=== PATIENT | male | born 1970 | race Two or more races ===

== ENCOUNTER → 2019-04-19 | Outpatient (CLI) | payer BC ==
[2019-04-19 08:21] LABS: Hematocrit 44.4 % (41.0-53.0); Hemoglobin 15.3 g/dL (13.5-17.5); Mean Corpuscular Hemoglobin 31.8 pg (28.0-32.0); Mean Corpuscular Hgb Conc. 34.5 g/dL (32.0-36.0); Mean Corpuscular Volume 92.2 fL (80.0-100.0); Platelet Count (auto) 193 10^3/uL (140-450); Red Blood Cells 4.81 10^6/uL (4.5-5.90); Red Cell Distribution Width 13.2 % (11.8-14.3); White Blood Cell 6.2 10^3/uL (4.4-10.8)
[2019-04-19 08:31] LABS: Basophils % (manual) 0 (0.0-2.0); Blast Cells 0; Metamyelocytes % 0; Myelocytes % 0; Promyelocytes % 0; Reactive Lymphocytes 0
[2019-04-19 09:04] LABS: Band Neutrophils % (manual) 1; Eosinophils % (manual) 10 (0-7); Lymphocytes % (manual) 31 (10.0-50.0); Monocytes % (manual) 15 (0-12)
[2019-04-19 09:07] LABS: Potassium 3.8 mmol/L (3.5-5.1)
[2019-04-19 09:20] LABS: Albumin 4.3 g/dL (3.4-5.0); BUN/Creatinine Ratio 12.7; Bilirubin, Total 0.6 mg/dL (0.2-1.0); Calcium 9.1 mg/dL (8.5-10.1); Total Protein 7.9 g/dL (6.4-8.2)
== END | disposition home or self-care (01) ==
LOC: LAB 07:07
PROVIDERS: ATTEND Nurse Practitioner
DX: E78.5 Hyperlipidemia, unspecified (principal)
CPT/HCPCS: 36415; 80053; 80061; 85007; 85027

== ENCOUNTER → 2021-07-30 | Outpatient (CLI) | payer BC ==
[2021-07-30 07:43] LABS: Urine Bacteria NONE SEEN /hpf (None Seen); Urine Blood Negative /uL (Negative); Urine Mucus FEW (None Seen); Urine Specific Gravity 1.015 (1.001-1.035); Urine WBC 1 /hpf (0 - 3)
[2021-07-30 07:52] LABS: Basophils # (auto) 0 10 ^3/uL (0-0.2); Basophils % (auto) 0.3 % (0.0-2.0); Eosinophils # (auto) 0.1 10 ^3/uL (0-0.8); Eosinophils % (auto) 1.7 % (0.0-7.0); Hematocrit 41.7 % (41.0-53.0); Hemoglobin 14.1 g/dL (13.5-17.5); Lymphocytes # (auto) 2.7 10 ^3/uL (0.4-5.4); Lymphocytes % (auto) 43.4 % (10.0-50.0); Mean Corpuscular Hemoglobin 30.4 pg (28.0-32.0); Mean Corpuscular Hgb Conc. 33.9 g/dL (32.0-36.0); Mean Corpuscular Volume 89.8 fL (80.0-100.0); Monocytes # (auto) 0.5 10 ^3/uL (0-1.3); Monocytes % (auto) 7.8 % (0.0-12.0); Neutrophils # (auto) 2.9 10 ^3/uL (1.6-8.6); Neutrophils % (auto) 46.8 % (37.0-80.0); Nucleated Red Blood Cells % 0.1 %; Red Blood Cells 4.64 10^6/uL (4.5-5.90); Red Cell Distribution Width 12.9 % (11.8-14.3); White Blood Cell 6.2 10^3/uL (4.4-10.8)
[2021-07-30 08:23] LABS: Potassium 3.8 mmol/L (3.5-5.1)
[2021-07-30 08:52] LABS: Albumin 3.9 g/dL (3.4-5.0); BUN/Creatinine Ratio 13.6; Bilirubin, Total 0.4 mg/dL (0.2-1.0); Calcium 9.2 mg/dL (8.5-10.1); Total Protein 7.3 g/dL (6.4-8.2)
== END | disposition home or self-care (01) ==
LOC: LAB 06:54
PROVIDERS: ATTEND Nurse Practitioner
DX: E78.5 Hyperlipidemia, unspecified (principal); I10 Essential (primary) hypertension
CPT/HCPCS: 36415; 80053; 80061; 81001; 83036; 84403; 84443; 85025

== ENCOUNTER → 2022-08-31 | Outpatient (CLI) | payer BC ==
[2022-08-31 10:15] LABS: Calcium 9.1 mg/dL (8.5-10.1); Potassium 4.3 mmol/L (3.5-5.1)
[2022-08-31 10:23] LABS: Albumin 4.4 g/dL (3.4-5.0); BUN/Creatinine Ratio 14.4; Bilirubin, Total 0.4 mg/dL (0.2-1.0); Total Protein 7.6 g/dL (6.4-8.2)
== END | disposition home or self-care (01) ==
LOC: LAB 08:57
PROVIDERS: ATTEND Nurse Practitioner
DX: E78.5 Hyperlipidemia, unspecified (principal); R73.9 Hyperglycemia, unspecified
CPT/HCPCS: 36415; 80053; 80061; 83036

== ENCOUNTER → 2023-03-02 | Outpatient (CLI) | payer BC ==
[2023-03-02 07:01] LABS: Urine Bacteria NONE SEEN /hpf (None Seen); Urine Blood Negative /uL (Negative); Urine Clarity Clear (Clear); Urine Color Yellow (Yellow); Urine Mucus FEW (None Seen); Urine Protein, UAD Negative (Negative); Urine Urobilinogen Normal (Negative); Urine WBC <1 /hpf (0 - 3)
[2023-03-02 07:30] LABS: Alanine Aminotransferase 53 U/L (7-40); Albumin 4.7 g/dL (3.2-4.8); Alkaline Phosphatase 48 U/L (46-116); Anion Gap 6.9 (5-15); Aspartate Aminotransferase 24 U/L (13-40); BUN/Creatinine Ratio 11.3 (10.0-20.0); Bilirubin, Total 0.5 mg/dL (0.2-1.0); Blood Urea Nitrogen 12 mg/dL (9-23); Calcium 9.2 mg/dL (8.7-10.4); Carbon Dioxide 23.1 mmol/L (20-30); Chloride 109 mmol/L (98-107); Cholesterol 173 mg/dL (< 200); Glucose 113 mg/dL (74-106); LDL Cholesterol 128 mg/dL (< 100); Potassium 3.9 mmol/L (3.5-5.1); Sodium 139 mmol/L (136-145); Triglycerides 233 mg/dL (< 150)
[2023-03-02 07:31] LABS: Basophils # (auto) 0.1 10 ^3/uL (0-0.2); Basophils % (auto) 0.9 % (0.0-2.0); Eosinophils # (auto) 0.6 10 ^3/uL (0-0.8); Eosinophils % (auto) 9.7 % (0.0-7.0); Hematocrit 40.6 % (41.0-53.0); Hemoglobin 13.6 g/dL (13.5-17.5); Lymphocytes # (auto) 2.4 10 ^3/uL (0.4-5.4); Lymphocytes % (auto) 38.3 % (10.0-50.0); Mean Corpuscular Hemoglobin 31.2 pg (28.0-32.0); Mean Corpuscular Hgb Conc. 33.6 g/dL (32.0-36.0); Mean Corpuscular Volume 92.9 fL (80.0-100.0); Monocytes # (auto) 0.7 10 ^3/uL (0-1.3); Monocytes % (auto) 11.4 % (0.0-12.0); Neutrophils # (auto) 2.5 10 ^3/uL (1.6-8.6); Neutrophils % (auto) 39.7 % (37.0-80.0); Nucleated Red Blood Cells % 0.2 %; Red Blood Cells 4.37 10^6/uL (4.5-5.90); Total Protein 7.1 g/dL (5.7-8.2); White Blood Cell 6.3 10^3/uL (4.4-10.8)
[2023-03-02 10:16] LABS: HDL Cholesterol 33 mg/dL (40-59)
== END | disposition home or self-care (01) ==
LOC: LAB 06:35
PROVIDERS: ATTEND Nurse Practitioner
DX: I10 Essential (primary) hypertension (principal); E78.5 Hyperlipidemia, unspecified; R73.9 Hyperglycemia, unspecified
CPT/HCPCS: 36415; 80053; 80061; 81001; 83036; 84443; 85025

== ENCOUNTER → 2023-07-28 | Outpatient (CLI) | payer BC | END | disposition home or self-care (01) | LOC: LAB 06:34 | PROVIDERS: ATTEND Nurse Practitioner | DX: M10.9 Gout, unspecified (principal) | CPT/HCPCS: 36415; 84550 ==

== ENCOUNTER 2024-12-03 08:17 | Outpatient (CLI) | payer BC ==
[2024-12-03 09:21] LABS: Alanine Aminotransferase 24 U/L (7-40); Alkaline Phosphatase 60 U/L (46-116); Anion Gap 7 (5-15); Aspartate Aminotransferase 17 U/L (13-40); BUN/Creatinine Ratio 15.5 (10.0-20.0); Blood Urea Nitrogen 16 mg/dL (9-23); Calcium 10.2 mg/dL (8.7-10.4); Carbon Dioxide 27 mmol/L (20-31); Potassium 4.5 mmol/L (3.5-5.1); Sodium 142 mmol/L (136-145); Total Protein 7.4 g/dL (5.7-8.2)
[2024-12-03 09:22] LABS: Cholesterol 194 mg/dL (< 200)
[2024-12-03 09:23] LABS: Bilirubin, Total 0.6 mg/dL (0.2-1.0)
[2024-12-03 09:24] LABS: Chloride 108 mmol/L (98-107); Glucose 108 mg/dL (74-106); HDL Cholesterol 32 mg/dL (40-59); LDL Cholesterol 137 mg/dL (< 100); Triglycerides 192 mg/dL (< 150)
== END 2024-12-03 17:00 | disposition home or self-care (01) ==
LOC: LAB 08:17
PROVIDERS: ATTEND Nurse Practitioner
DX: E11.9 Type 2 diabetes mellitus without complications (principal); E78.5 Hyperlipidemia, unspecified
CPT/HCPCS: 36415; 80053; 80061; 83036

== ENCOUNTER 2025-07-01 06:52 | Day surgery (SDC) | payer BC ==
[2025-06-24 10:53] LABS: Hematocrit 44.3 % (41.0-53.0); Hemoglobin 14.9 g/dL (13.5-17.5); Mean Corpuscular Hemoglobin 30.6 pg (28.0-32.0); Mean Corpuscular Volume 91.2 fL (80.0-100.0); Nucleated Red Blood Cells % 0.0 %
[2025-06-24 10:56] LABS: Urine Protein, UAD Negative (Negative)
[2025-06-24 11:12] LABS: INR 0.97 (0.9-1.15); Partial Thromboplastin Time 25.5 SEC (24.5-34.5); Prothrombin Time 10.3 sec (9.3-11.8)
[2025-06-24 11:28] LABS: Alanine Aminotransferase 40 U/L (7-40); Albumin 5.3 g/dL (3.2-4.8); Alkaline Phosphatase 58 U/L (46-116); Anion Gap 10 (5-15); BUN/Creatinine Ratio 13.3 (10.0-20.0); Bilirubin, Total 0.6 mg/dL (0.2-1.0); Blood Urea Nitrogen 15 mg/dL (9-23); Calcium 10.5 mg/dL (8.7-10.4); Carbon Dioxide 25 mmol/L (20-31); Chloride 104 mmol/L (98-107); Glucose 98 mg/dL (74-106); Potassium 5.2 mmol/L (3.5-5.1); Sodium 139 mmol/L (136-145); Total Protein 8.2 g/dL (5.7-8.2)
[~2025-07-01] VITALS: Ht 177.8 cm; Wt 79.4 kg
[~2025-07-01 06:52] MED LIST: GEMF-66 PO; LOSA-535 PO; METF-370 PO; SIMV10TA20 PO
[2025-07-01] MEDS ORDERED: MEPERIDINE HCL (25 MG/ML) 1ML VIAL IV ONE (06:53)
[2025-07-01] MEDS ORDERED: fentaNYL CITRATE 100 MCG/2 ML VL ONE (07:53)
[2025-07-01] MEDS ORDERED: KETAMINE 50mg/ML 1ml syringe ONE (07:53)
[2025-07-01] MEDS ORDERED: LIDOCAINE 1% INJ PF 5ML AMP ONE (07:54)
[2025-07-01] MEDS ORDERED: PROPOFOL 10 MG/ML 20 ML IV ONE (07:54)
[2025-07-01] MEDS ORDERED: ONDANSETRON HCL 4 MG/2 ML VIAL ONE (07:54)
[2025-07-01] MEDS ORDERED: SODIUM CHLORIDE LOCK 50 ML ONE (07:54)
[2025-07-01] MEDS ORDERED: MIDAZOLAM HCL 2MG/2ML 2ml VIAL (1mg/ml) ONE (07:54)
[2025-07-01] MEDS ORDERED: HYDR1TAB97 PO (08:19)
[2025-07-01] MEDS ORDERED: ASPI-498 OR (08:21)
[2025-07-01] MEDS ORDERED: CEPH500C PO (08:21)
[2025-07-01] MEDS ORDERED: MORPHINE SULFATE 4 MG/ML SYR/VIAL IV PRN (08:30)
[2025-07-01] MEDS ORDERED: KETOROLAC TROMETH 30 MG/ML 1ML VIAL IV ONE (08:30)
[2025-07-01] MEDS ORDERED: HYDROmorphone HCL 2 MG/ML VL/or syr IV PRN ×2 (08:30)
[2025-07-01] MEDS ORDERED: MORPHINE SULFATE INJ 2 MG/ml SYRG IV PRN (08:30)
[2025-07-01] MEDS ORDERED: METOCLOPRAMIDE HCL 5MG/ml INJ 2ml VIAL IV PRN (08:30)
[2025-07-01] MEDS ORDERED: BUPIVACAINE HCL 50 ML ONE (08:51)
[2025-07-01] MEDS: ceFAZolin 2 GM/D5W50ml 50 ML IV ONE (09:20)
[2025-07-01 11:21] VITALS: PULSE 76; RESP 14; TEMP 97.2; O2SAT 96
[2025-07-01 11:59] VITALS: BP 136/87; PULSE 70; RESP 12; O2SAT 98
--- NOTE | 2025-07-01 17:30 | DVHOP ---
DATE OF SURGERY: 07/01/2025 PREOPERATIVE DIAGNOSIS: Left shoulder rotator cuff tear. POSTOPERATIVE DIAGNOSIS: Left shoulder rotator cuff tear. PROCEDURES PERFORMED: Left shoulder arthroscopy, subacromial decompression, rotator cuff repair using double-row technique. ANESTHESIA: General with interscalene block. JAIL GUARD: Fer Sanchez PA-C. BLOOD LOSS: Minimal. IMPLANTS USED: Arthrex FiberTak x 2, Ossio anchor x 1. INDICATION FOR PROCEDURE: The patient is a 55-year-old male who presented to the clinic with a history of shoulder pain. Clinical and radiological evaluation demonstrated a complete tear of the rotator cuff. Nonoperative and operative management options were discussed. Surgery in the form of left shoulder arthroscopy with rotator cuff repair was discussed with him. Benefits, risks, and alternatives were discussed. Specific complications of the surgery such as neurovascular injury, infection, arthrofibrosis, loss of limb or life were discussed. We decided to proceed with the surgical option. PROCEDURE IN DETAIL: The patient was identified in the preoperative holding area and the surgical site was marked. Consent was verified. He was brought into the operating room and placed supine on the operating table. General anesthesia was administered. Intravenous antibiotics were given. He was brought up in the wheelchair position. All the bony prominences were appropriately padded. Extremities were prepped and draped in the usual sterile manner. Timeout was called out to confirm the identity of the patient, the nature of surgery, the site of surgery, the availability of implants, x-rays, and allergies to medications. Standard posterior portal was established. A 30-degree scope was inserted. Standard anterior portal was established, a probe was inserted and the findings were as follows: * Complete rotator cuff tear supraspinatus and anterior infraspinatus. * Intact subscapularis tendon. * Intact biceps tendon. * Intact glenohumeral joint. * Degenerative labral tear. Based on these findings, the subacromial space was entered. The bursectomy was carried out. The tear configuration was noted. Rotator cuff debridement was done. The footprint was prepared as well. Debridement of the footprint along with minimal decortication for bony bleeding was also done. The tear was a crescent-shaped tear with a retraction of the mid glenohumeral joint. I decided to repair it with a double-row technique. Two medial row anchors were inserted. These were double-loaded anchors. All sutures were passed from posterior to anterior direction. Eight passes were made. Next, the knots were tied using a self-locking tying knot. Excellent fixation was noted. One suture from each pair was then inserted into the lateral row anchor. A punch was used and then the anchor was inserted. Excellent fixation was noted as well. Double row repair was completed. Watertight repair was noted. Tissue quality was considered to be good. Subsequently, decompression was completed with acromioplasty approximately 5-10 mm was removed. The incisions were closed with 3-0 nylon. Sterile dressing was applied. The shoulder was placed in the shoulder immobilizer and extended position. DISPOSITION: Good. The patient was extubated and taken to the recovery room without complications. PLAN: To remain in the brace at all times and to follow up in 2 weeks. MD WILLIAM Belle/MONIQUE TID: [id number] RECEIPT: [id number] [facility]
== END 2025-07-01 12:21 | disposition home or self-care (01) ==
LOC: EDUNIT# → SUR 06:52
PROVIDERS: ATTEND Orthopaedic Surgery Sports Medicine
DX: M75.122 Complete rotator cuff tear or rupture of left shoulder, not specified as traumatic (principal); S43.432A Superior glenoid labrum lesion of left shoulder, initial encounter; I10 Essential (primary) hypertension; E78.00 Pure hypercholesterolemia, unspecified; Z79.84 Long term (current) use of oral hypoglycemic drugs; Z79.899 Other long term (current) drug therapy; Z98.52 Vasectomy status; Z83.3 Family history of diabetes mellitus; Z81.0 Family history of intellectual disabilities; Z82.3 Family history of stroke; Z82.49 Family history of ischemic heart disease and other diseases of the circulatory system; X58.XXXA Exposure to other specified factors, initial encounter; Y93.89 Activity, other specified; Y92.89 Other specified places as the place of occurrence of the external cause; Y99.8 Other external cause status
CPT/HCPCS: 29826; 29827; 36415; 80053; 81001; 82962; 85025; 85610; 85730; C1713; J0169; J0690; J1885; J2175; J2250; J2405; J2704; J3010; J3490; A4565